=== PATIENT | female | born 1965 | race Hispanic/Latino ===

== ENCOUNTER 2017-09-05 12:31 | Observation (INO) | payer BC ==
[~2017-09-05] VITALS: Ht 154.9 cm; Wt 73.5 kg
[2017-09-05] MEDS ORDERED: MORPHINE SULFATE INJ 4 MG/ML INJ IV PRN (13:00)
[2017-09-05] MEDS ORDERED: DIAZEPAM 5 MG TAB PO ONE (13:00)
[2017-09-05] MEDS ORDERED: KETOROLAC TROMETHAMINE 30 MG/ML VIAL IV PRN ×2 (13:00→15:00)
[2017-09-05] MEDS ORDERED: ONDANSETRON HCL INJ 2 MG/ML VIAL IV PRN (13:00)
[2017-09-05 13:38] LABS: BASOPHILS % 0.5 % (0.0-1.0); EOSINOPHILS # (AUTO) 0.3 (0.0-0.4); EOSINOPHILS % 4.1 % (0.0-6.0); HEMATOCRIT 37.5 % (34.2-44.1); HEMOGLOBIN 12.5 g/dL (12.0-16.0); LYMPHOCYTES # (AUTO) 1.9 (1.0-3.2); LYMPHOCYTES % 26.1 % (18.0-39.1); MEAN CORPUSCULAR HEMOGLOBIN 29.8 pg (28-32); MEAN CORPUSCULAR HGB CONC 33.3 g/dL (31-35); MEAN CORPUSCULAR VOLUME 89.5 fL (81-99); MONOCYTES # (AUTO) 0.5 (0.2-0.8); NEUTROPHILS # (AUTO) 4.5 (2.1-6.9); PLATELET COUNT 308 x10e3/uL (140-360); RED BLOOD COUNT 4.19 x10e6/uL (3.6-5.1); RED CELL DISTRIBUTION WIDTH 13.5 % (11.7-14.4)
[2017-09-05] MEDS ORDERED: PROMETHAZINE 25MG/ NS 50ML (IV) IV PRN (15:00)
[2017-09-05] MEDS: HYDROMORPHONE 1MG/1ML INJ IV PRN ×3 (15:05→21:08)
[2017-09-05] MEDS: ONDANSETRON HCL INJ 2 MG/ML VIAL IV PRN ×2 (15:05→21:08)
[2017-09-05 15:54] LABS: ANION GAP 15.5 mmol/L (8-16); BLOOD UREA NITROGEN 16 mg/dL (8-26); BUN/CREATININE RATIO 32 (6-25); CARBON DIOXIDE 25 mmol/L (22-32); CHLORIDE 102 mmol/L (101-111); CREATININE, SERUM 0.5 mg/dL (0.6-1.1); EST GLOMERULAR FILTRATION RATE > 60 ML/MIN (60-); GLUCOSE 88 mg/dL (74-118); POTASSIUM 3.5 mmol/L (3.6-5.1); SODIUM 139 mmol/L (136-144)
[2017-09-05] MEDS ORDERED: POTASSIUM CHLORIDE 20 MEQ TAB CR PO STA (16:51)
[2017-09-05] MEDS ORDERED: ZOLPIDEM TARTRATE 5 MG TAB PO PRN (17:00)
[2017-09-05] MEDS ORDERED: IBUPROFEN 400 MG TAB PO PRN (17:00)
[2017-09-05] MEDS ORDERED: ACETAMINOPHEN 325 MG TAB PO PRN (17:00)
[2017-09-05] MEDS ORDERED: SODIUM CHLORIDE FLUSH 10 ML SYR INJ PRN (17:00)
[2017-09-05] MEDS ORDERED: DIPHENHYDRAMINE HCL 25 MG CAP PO PRN (17:00)
[2017-09-05] MEDS ORDERED: ULTRAM 50MG50 MG PO (17:59)
[2017-09-05 18:15] VITALS: BP 159/91
[2017-09-05 18:38] VITALS: BP 159/91
[2017-09-05 20:00] VITALS: BP 168/97
[2017-09-05 21:13] LABS: ALANINE AMINOTRANSFERASE 26 IU/L (0-55); ALBUMIN 4.2 g/dL (3.5-5.0); ALBUMIN/GLOBULIN RATIO 1.6 (0.8-2.0); ALKALINE PHOSPHATASE 100 IU/L (40-150); CALCIUM 9.3 mg/dL (8.4-10.2); CREATINE KINASE 68 IU/L (29-168)
[2017-09-05 23:49] VITALS: BP 168/97
[2017-09-06] VITALS (11 sets, daily range): BP systolic 118–146; BP diastolic 70–95
[2017-09-06] MEDS: HYDROMORPHONE 1MG/1ML INJ IV PRN ×6 (02:03→19:56)
[2017-09-06] MEDS: ONDANSETRON HCL INJ 2 MG/ML VIAL IV PRN ×5 (02:03→19:56)
[2017-09-06] MEDS: FAMOTIDINE 20 MG TAB PO SCH ×2 (07:51→17:02)
--- NOTE | 2017-09-06 11:55 | Diagnostic Imaging Report ---
TECHNIQUE: Magnetic resonance imaging of the left tibia and fibula was performed WITHOUT injected contrast. HISTORY: pain COMPARISON: None available. FINDINGS: Bone marrow signal normal. No fracture or osteonecrosis. Soft tissues are normal in appearance. No muscle edema. Distal tendon is in normal anatomic position. Muscle bulk is preserved. No soft tissue mass or fluid collection. IMPRESSION: No acute osseous or soft tissue abnormality. Signed by: Dr. Johann Ruiz M.D. on 09/06/2017 11:52 AM
[2017-09-06] MEDS ORDERED: SODIUM CHLORIDE 0.9% 50ML 50 ML ONE (12:57)
[2017-09-06] MEDS ORDERED: GADOBENATE DIMEGLUMINE 1 ML IV ONE (12:57)
[2017-09-06] MEDS: PREGABALIN 75 MG CAP PO SCH (17:02)
[2017-09-06] MEDS ORDERED: SODIUM CHLORIDE 0.9% 250ML 250 ML ONE (21:16)
[2017-09-07] VITALS: BP 125/77
[2017-09-07] MEDS: HYDROMORPHONE 1MG/1ML INJ IV PRN ×2 (00:30→09:07)
[2017-09-07] MEDS: ONDANSETRON HCL INJ 2 MG/ML VIAL IV PRN ×3 (00:30→09:07)
[2017-09-07 04:00] VITALS: BP 117/76
[2017-09-07 07:24] VITALS: BP 117/76
[2017-09-07 07:40] VITALS: BP 108/68
[2017-09-07] MEDS: FAMOTIDINE 20 MG TAB PO SCH (07:50)
[2017-09-07] MEDS: PREGABALIN 75 MG CAP PO SCH (09:07)
[2017-09-07 11:34] VITALS: BP 108/67
[2017-09-07] MEDS ORDERED: LYRICA75 MG PO ×2 (13:18→13:24)
--- NOTE | 2017-09-13 15:42 | Diagnostic Imaging Report ---
MRA OF THE LOWER EXTREMITIES, WITHOUT AND WITH CONTRAST. History: \S\PAIN Comparison: Left MRI tibia and fibula 09/06/[address] left lower extremity 09/05/2017. Technique: Contrast-enhanced 3-D gradient echo MRA imaging of the abdomen, pelvis, and bilateral lower extremities was performed post-IV administration of 15 cc of Multihance. Volume rendering and MIP reformations were obtained. Discussion: PELVIS VESSELS: Visualized bilateral common, external, and internal iliac arteries are patent. RIGHT LOWER EXTREMITY: Right common femoral, profundus femoral, superficial femoral, and popliteal arteries are patent. There is a patent trifurcation with both anterior and posterior tibial arteries supply the foot. LEFT LOWER EXTREMITY: Right common femoral, profundus femoral, superficial femoral, and popliteal arteries are patent. There is a patent trifurcation with both anterior and posterior tibial arteries supply the foot. NON-VASCULAR FINDINGS: Unremarkable. BONES AND SOFT TISSUES: Unremarkable on limited evaluation. IMPRESSION: Normal MRA of the bilateral lower extremities. Signed by: Dr. Marguerite Castaneda M.D. on 09/13/2017 3:38 PM
== END 2017-09-07 14:14 | disposition home or self-care (01) ==
LOC: ER 12:31 → ERHOLD 16:59 → IMCU 18:07
DX: M79.662 Pain in left lower leg (principal); M25.562 Pain in left knee; M25.572 Pain in left ankle and joints of left foot; Z91.81 History of falling
CPT/HCPCS: 36415; 73718; 73725; 80053; 82550; 82553; 83605; 83735; 84484; 85025; 93005; 93926; 93971; 97116; 97139; 97161; 99284; G0378 ×3; J1170 ×3; J1885 ×2; J2270; J2405 ×3; J2550; J7050

== ENCOUNTER → 2017-09-05 | Outpatient (CLI) | payer BC ==
[~2017-09-05] MED LIST: ULTRAM 50MG50 MG PO
--- NOTE | 2017-09-05 13:11 | Diagnostic Imaging Report ---
TECHNIQUE: Computed tomography imaging of the LEFT lower extremity was performed WITHOUT injected contrast. HISTORY: Pain in the lower extremity COMPARISON: None available. FINDINGS: No fracture or osteonecrosis. No lytic or blastic lesion. Soft tissue marker placed at the anterolateral calf. Muscle bulk is normal. No edema or fluid collection. Tendons in normal anatomic position. IMPRESSION: No acute CT abnormality of the left lower extremity. Signed by: Dr. Johann Ruiz M.D. on 09/05/2017 1:08 PM
== END ==
LOC: CT 11:34
PROVIDERS: ATTEND Family Medicine
DX: M79.662 Pain in left lower leg (principal)

== ENCOUNTER → 2018-11-23 | Outpatient (CLI) | payer BC ==
[~2018-11-23] MED LIST changes: +LYRICA75 MG PO
--- NOTE | 2018-11-23 11:29 | Diagnostic Imaging Report ---
EXAM: Right upper quadrant abdominal ultrasound INDICATION: Right upper quadrant pain COMPARISON: None. TECHNIQUE: Transverse and longitudinal images of the right upper quadrant abdomen were obtained FINDINGS: Liver: Size: 13.3 cm in the right midclavicular line, normal Appearance: Increased echogenicity, smooth contour Mass: No focal masses Gallbladder: No gallbladder distension, pericholecystic fluid, wall thickening, stone, or reported sonographic Moulton's sign. Gallbladder wall measures 2 mm Bile Ducts: Intrahepatic Ducts: No dilatation Extrahepatic Ducts: Common bile duct measures 2 mm, no dilatation Pancreas: Visualized portions of the pancreatic head, neck and proximal body are normal. Kidney: The right kidney measures 10.5 cm without evidence of hydronephrosis or stone. Vessels: Aorta: Visualized portions are normal Inferior Vena Cava: Visualized portions are normal Main Portal Vein: 0.8 cm, normal size with hepatopetal flow. Free Fluid: No ascites or pleural effusion IMPRESSION: No cholelithiasis or sonographic evidence of cholecystitis. Hepatic steatosis. Signed by: Lexx Keys MD on 11/23/2018 11:25 AM
== END ==
LOC: US 10:04
PROVIDERS: ATTEND Family Medicine
DX: R74.8 Abnormal levels of other serum enzymes (principal); R10.11 Right upper quadrant pain
CPT/HCPCS: 76705

== ENCOUNTER 2019-05-02 18:03 | Emergency (ER) | payer BC ==
[~2019-05-02] VITALS: Ht 154.9 cm; Wt 73.5 kg
[2019-05-02] MEDS ORDERED: SODIUM CHLORIDE 0.9% 1000ML 1,000 ML IV STA (18:12)
[2019-05-02 18:30] LABS: BASOPHILS % 0.5 % (0.0-1.0); EOSINOPHILS # (AUTO) 0.2 (0.0-0.4); HEMATOCRIT 38.3 % (34.2-44.1); HEMOGLOBIN 12.6 g/dL (12.0-16.0); LYMPHOCYTES % 23.8 % (18.0-39.1); MEAN CORPUSCULAR HGB CONC 32.9 g/dL (31-35); MONOCYTES # (AUTO) 0.6 (0.2-0.8); MONOCYTES % 6.7 % (4.4-11.3); NEUTROPHILS # (AUTO) 5.6 (2.1-6.9); NEUTROPHILS % 66.6 % (38.7-80.0); PLATELET COUNT 405 x10e3/uL (140-360); RED BLOOD COUNT 4.35 x10e6/uL (3.6-5.1); RED CELL DISTRIBUTION WIDTH 13.2 % (11.7-14.4)
[2019-05-02 18:48] LABS: ALANINE AMINOTRANSFERASE 17 IU/L (0-55); ALBUMIN 4.4 g/dL (3.5-5.0); ALBUMIN/GLOBULIN RATIO 1.3 (0.8-2.0); ALKALINE PHOSPHATASE 145 IU/L (40-150); ANION GAP 12.9 mmol/L (8-16); BLOOD UREA NITROGEN 8 mg/dL (7-26); BUN/CREATININE RATIO 11 (6-25); CALCIUM 10.3 mg/dL (8.4-10.2); CARBON DIOXIDE 29 mmol/L (22-29); CHLORIDE 102 mmol/L (98-107); CREATINE KINASE 92 IU/L (29-168); CREATININE, SERUM 0.74 mg/dL (0.57-1.11); EST GLOMERULAR FILTRATION RATE > 60 ML/MIN (60-); GLUCOSE 90 mg/dL (74-118); LIPASE 22 U/L (8-78); POTASSIUM 3.9 mmol/L (3.5-5.1); SODIUM 140 mmol/L (136-145)
[2019-05-02] MEDS ORDERED: SODIUM CHLORIDE 0.9% 50ML 50 ML ONE (19:49)
[2019-05-02] MEDS ORDERED: IOPAMIDOL 370 MG/ML 200 ML INFUS..BTL INJ ONE (19:49)
[2019-05-02 20:02] LABS: BILIRUBIN,URINE NEGATIVE (NEGATIVE); CLARITY,URINE CLEAR (CLEAR); COLOR,URINE YELLOW (YELLOW); KETONES,URINE NEGATIVE (NEGATIVE); LEUKOCYTE ESTERASE ,URINE NEGATIVE (NEGATIVE); NITRITE,URINE NEGATIVE (NEGATIVE); PROTEIN,URINE DIPSTICK NEGATIVE (NEGATIVE); URINE UROBILINOGEN 0.2 mg/dL (0.2 - 1)
[2019-05-02 20:15] LABS: EPITHELIAL CELLS,URINE RARE /LPF; WBC,URINE (MAN) 0-5 /HPF (0-5)
--- NOTE | 2019-05-02 20:52 | Diagnostic Imaging Report ---
CT Abdomen And Pelvis with Intravenous Contrast INDICATION: Abdominal enlargement and pain ^abd pain ^[id number] ^[id number] TECHNIQUE: Thin collimation axial images obtained from the diaphragm to the level of the pubic symphysis following the uneventful administration of 100 cc of low osmolar, nonionic intravenous contrast. Dose reduction techniques used: Automated exposure control, adjustment of the mAs and/or kVp according to patient size, standardized low-dose protocol, and/or iterative reconstruction technique. RADIATION DOSE: Total DLP: 517.13 mGy*cm Estimated effective dose: (DLP x 0.015 x size factor) mSv CTDIvol has been reviewed. It is below the limits set by the Radiation Protocol Committee (RPC). COMPARISON: CT abdomen 02/18/2019. ABDOMEN FINDINGS: Lung Bases: Dependent bibasilar atelectasis. Visualized portion of the mediastinum is normal. Liver: Steatosis. Poorly defined low attenuating lesion in segment 5 measures 11 mm and is stable. Gallbladder: Present and appears normal. No biliary ductal dilatation. Pancreas: Normal attenuation without mass or ductal dilatation. Spleen: Normal in size. No evidence of mass.. Adrenal Glands: No evidence for mass. Kidneys: Right: Normal enhancement. No soft tissue mass. No hydronephrosis. Left: Normal enhancement. No soft tissue mass. No hydronephrosis. Lymph Nodes: No lymphadenopathy. Aorta: Normal in diameter PELVIS FINDINGS: Bowel: Stomach: Normal. Small Bowel: Normal in caliber with normal wall thickness. Large Bowel: Normal in caliber with normal wall thickness. There are a few scattered diverticula without associated inflammation. No focal mural thickening or pericolonic inflammation. Appendix: Not visualized and may be absent or collapsed. Bladder: Well distended and normal. The uterus is absent. No adnexal mass Peritoneum/retroperitoneum: No free fluid or fluid collection. Bones: Stable bilateral pedicle screws and vertical stabilizing bars at L5-S1. No hardware failure or associated fracture. Remainder of the osseous structures appear normal. Soft tissues: Fat-containing umbilical hernia has an aperture of 10 mm. IMPRESSION: 1. Mild burden of diverticulosis coli. No evidence for bowel obstruction or inflammation. Nonvisualization of the appendix. 2. Steatosis. Stable low attenuating hepatic lesion. As suggested on previous exam, further characterization with MRI is recommended. Signed by: Dr. Rabia Marsh MD on 05/02/2019 8:49 PM
[2019-05-02 21:12] VITALS: BP 108/73
== END 2019-05-02 21:25 | disposition home or self-care (01) ==
LOC: ER 18:07
DX: R10.84 Generalized abdominal pain (principal); J45.909 Unspecified asthma, uncomplicated
CPT/HCPCS: 36415; 74177; 80053; 81001; 82550; 82553; 83690; 84484; 85025; 99284; J7030; Q9967

== ENCOUNTER 2020-10-16 15:06 | Emergency (ER) | payer BC, MEDICARE ==
[~2020-10-16] VITALS: Ht 154.9 cm; Wt 73.5 kg
[2020-10-16] MEDS ORDERED: KETOROLAC TROMETHAMINE 30 MG/ML VIAL IM STA (16:35)
[2020-10-16] MEDS ORDERED: ULTRAM 50MG50 MG PO (16:57)
== END 2020-10-16 18:24 | disposition home or self-care (01) ==
LOC: ER 15:17
DX: S06.0X0A Concussion without loss of consciousness, initial encounter (principal); S01.01XA Laceration without foreign body of scalp, initial encounter; M54.2 Cervicalgia; M25.552 Pain in left hip; W11.XXXA Fall on and from ladder, initial encounter
CPT/HCPCS: 70450; 72100; 72125; 99284

== ENCOUNTER 2020-10-27 13:38 | Emergency (ER) | payer BC, MEDICARE ==
[~2020-10-27] VITALS: Ht 154.9 cm; Wt 73.5 kg
[~2020-10-27 13:38] MED LIST changes: -GADOBENATE DIMEGLUMINE 1 ML IV ONE; -SODIUM CHLORIDE 0.9% 50ML 50 ML ONE
== END 2020-10-27 14:18 | disposition home or self-care (01) ==
LOC: ER 13:41
DX: Z48.02 Encounter for removal of sutures (principal)
CPT/HCPCS: 99282

== ENCOUNTER → 2020-10-27 | Outpatient (CLI) | payer BC, MEDICARE ==
[~2020-10-27] MED LIST changes: +GADOBENATE DIMEGLUMINE 1 ML IV ONE; +SODIUM CHLORIDE 0.9% 50ML 50 ML ONE
[2020-10-27 12:38] LABS: CREATININE, SERUM 0.75 mg/dL (0.57-1.11)
== END ==
LOC: MRI 11:53
PROVIDERS: ATTEND Internal Medicine Gastroenterology
DX: R16.0 Hepatomegaly, not elsewhere classified (principal)
CPT/HCPCS: 36415; 74183; 82565; 84520

== ENCOUNTER → 2021-02-10 | Outpatient (CLI) | payer BC, MEDICARE ==
[~2021-02-10] MED LIST changes: +IOPAMIDOL 370 MG/ML 200 ML INFUS..BTL INJ ONE; +SODIUM CHLORIDE 0.9% 50ML 50 ML ONE
[2021-02-10 16:43] LABS: CREATININE, SERUM 0.69 mg/dL (0.57-1.11)
== END ==
LOC: CT 15:49
PROVIDERS: ATTEND Family Medicine
DX: K43.6 Other and unspecified ventral hernia with obstruction, without gangrene (principal)
CPT/HCPCS: 36415; 74177; 82565; 84520; Q9967

== ENCOUNTER 2024-08-21 19:11 | Emergency (ER) | payer BC, MEDICARE ==
[~2024-08-21] VITALS: Ht 154.9 cm; Wt 73.5 kg
[~2024-08-21 19:11] MED LIST changes: -IOPAMIDOL 370 MG/ML 200 ML INFUS..BTL INJ ONE; -SODIUM CHLORIDE 0.9% 50ML 50 ML ONE
[2024-08-21] MEDS: KETOROLAC TROMETHAMINE 60 MG/2 ML VIAL IM STA (19:48)
[2024-08-21] MEDS ORDERED: KETOROLAC TROME10 MG PO (21:11)
[2024-08-21 21:15] VITALS: PULSE 66; RESP 16; TEMP 98; O2SAT 97
== END 2024-08-21 21:25 | disposition home or self-care (01) ==
LOC: ER 19:24
DX: M25.521 Pain in right elbow (principal); M25.561 Pain in right knee; V43.52XA Car driver injured in collision with other type car in traffic accident, initial encounter; Y92.488 Other paved roadways as the place of occurrence of the external cause; I10 Essential (primary) hypertension; J45.909 Unspecified asthma, uncomplicated; M54.9 Dorsalgia, unspecified; G89.29 Other chronic pain
CPT/HCPCS: 73080; 73560; 99283; J1885